=== PATIENT | female | born 1980 | race Caucasian/White ===

== ENCOUNTER 2021-07-27 09:04 | Outpatient (CLI) | payer BC, SELFPAY ==
[2021-07-27 09:51] LABS: Alanine Aminotransferase 14 U/L (4-35); Albumin Level 4.1 g/dL (3.5-5.1); Alkaline Phosphatase 75 U/L (38-126); Amylase 63 U/L (30-110); Aspartate Amino Transferase 25 U/L (14-36); Bilirubin,Total 0.4 mg/dL (0.2-1.3); Lipase 67 U/L (23-300)
== END 2021-07-27 09:05 | disposition home or self-care (01) ==
LOC: ANHSURGERY 09:09
PROVIDERS: PCP Physician Assistant; Visit Provider Surgery
DX: Z01.818 Encounter for other preprocedural examination (principal); K80.20 Calculus of gallbladder without cholecystitis without obstruction
CPT/HCPCS: 36415; 80076; 82150; 83690; 86850; 86900; 86901

== ENCOUNTER 2021-08-02 00:19 | Day surgery (SDC) | payer BC, SELFPAY ==
[2021-07-26 15:15] VITALS: BMI 40.8
--- NOTE | 2021-07-26 15:36 | PC.NURSE ---
Report to the Outpatient Waiting Room, entrance under the green pavilion located off [facility], at time 11:30 on date 08/02/21. OR Time: 1:30. - You and your visitor will be asked a series of questions to screen for COVID 19 for your protection. - A mask is required within the hospital. One visitor will be allowed to accompany the patient into the hospital. Patients visitor will be instructed to remain with patient at all times or leave the building. We will allow the visitor to come back to the postoperative area when patient is ready. Preoperative COVID Testing Requirements: No COVID Test needed if: (proof is required; if not received patient will have Rapid Test prior to entry) - Patient has received COVID Vaccine at least 14 days prior to procedure date or - Patient has positive COVID test result within last 90 days of surgery date. COVID Test needed if above criteria is not met Patients may have clear liquids (water, carbonated beverages, clear teas, apple juice) until 3 hours prior to surgery (10:30) with a maximum of 20 ounces. - No food from midnight until time of surgery Take the following medications with a SIP of water the morning of surgery: PAIN PILL (IF NEEDED) Medications to discontinue per physician: N/A Date to take last dose: N/A Please no make-up, nail maori, hairspray, perfume, deodorant, or body powder the day of surgery. No jewelry (including any body piercings) or valuables the day of surgery, leave them at home. Please take a shower or bath the night before, or the morning of, surgery with an antibacterial soap. Wear comfortable, loose fitting clothing. HIBICLENS SHOWER - Jewelry must be removed prior to entering the operating room. Rings and piercings that are not removed may be cut off. - The hospital will not accept responsibility for valuables. - Please leave all valuables, including medications, at home the day of surgery. If you are going home after surgery, a licensed driver guard must drive you home. - NO public transportation without another adult. - We recommend that an adult stay with you for 24 hours following discharge. - We also recommend that you do not drive, make important decision, drink alcoholic beverages, or take any drugs that were not prescribed by your health care provider for at least 24 hours after your discharge time. Follow any additional instructions given to you from your surgeon. Telephone instructions given to CAN GARCIA and asked if any additional questions and then verbalized understanding. Patient advised to call surgeon office or pre surgery nurse liaison [phone] if any additional questions.
[2021-08-02] VITALS (10 sets, daily range): BP systolic 101–137; BP diastolic 37–88; PULSE 47–73; RESP 12–18; TEMP 36.3–36.9; O2SAT 96–100
[2021-08-02] MEDS: ACETAMINOPHEN 500 MG TABLET 1000 MG PO (11:23)
[2021-08-02] MEDS: KETOROLAC 15 MG/ML VIAL (*BKC) IV PUSH (11:23)
[2021-08-02] MEDS: LACTATED RINGERS 1,000 ML 30 ML IV CONT (11:32)
--- NOTE | 2021-08-02 11:44 | P.PNAN_ITS ---
Anes - Initial Pre Proc Eval Procedure: Operation Date: 08/02/21 13:30 Proposed Procedures p Laparoscopic Cholecystectomy, Possible Open - Chema Abraham DO Date/Time: 08/02/21 11:44 Surgeon: Chema Abraham DO Pre Op Diagnosis: symptomatic cholelithiasis Patient Data Age: 40 Gender: F Height: 1.63 m Weight: 108 kg Allergies Allergy/AdvReac Type Severity Reaction Status Date / Time fentanyl Allergy Mild Other Verified 07/26/21 15:14 Home Medications Medication Instructions Recorded Confirmed Type hydrocodone 5 mg-acetaminophen 325 1 tablet PO Q4H PRN #15 tablet 07/23/21 07/26/21 Rx mg tablet Patient hx anesthesia problems: none Family hx anesthesia problems: none Results Review: All pre-operative results and documents have been reviewed as part of the pre-operative evaluation. 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 Informed Consent: The patient's anesthetic plan and its attendant risks and benefits were discussed with the patient/family/POA. Questions were solicited and answers provided to the satisfaction of the patient/family/POA.
--- NOTE | 2021-08-02 13:03 | WPDHPUPDATE1 ---
History and Physical Update Update Date/Time: 08/02/21 13:03 History and Physical has been reviewed, including an updated exam of the patient. There are NO changes in the patient's condition. Risks, benefits, and alternatives have been discussed and questions answered. Patient agrees to proceed with procedure.
[2021-08-02] MEDS: ceFAZolin 2 GM/D5W 50 ML 2 GM/50 ML BAG IVPB (13:25)
--- NOTE | 2021-08-02 14:10 | W.PM.PROC2 ---
Procedure Note - Detailed Date of Procedure 08/02/21 Pre-op Diagnosis symptomatic cholelithiasis Post-op Diagnosis Same Procedure Performed Laparoscopic Cholecystectomy Surgeon Chema Abraham, DO Anesthesia General and Local (0.5% bupivacaine) Indications This is a 40-year-old woman who presented with abdominal pain that started about 1 month ago. She went to [facility] for an ultrasound which showed evidence of cholelithiasis. Discussions were made with the patient about treatment options and decision was made to proceed with laparoscopic cholecystectomy, possible open. Findings Laparoscopic cholecystectomy was performed. Patient's gallbladder was slightly elongated and had some chronic gallbladder wall thickening. There were a few tiny stones within the gallbladder. The cystic duct appeared normal in size. The gallbladder was removed and sent to the lab for pathology. Description of Procedure Procedure as well as risks, benefits, and alternatives were discussed with patient. Written consent was obtained and placed in chart prior to procedure. The patient was brought back to surgical suite. Patient was placed in supine position on operating table. Time-out was done to confirm patient and procedure. Patient was then intubated by the anesthesia department. Abdomen was prepped and draped in sterile fashion using chlorhexidine prep. 0.5% bupivacaine with epinephrine was infiltrated at each site of incision. A 5 millimeter incision was made near the umbilicus, and a 5 millimeter Optiview trocar was advanced through the abdominal layers under direct visualization. Once inside the abdominal cavity, carbon dioxide was insufflated to create a pneumoperitoneum. The camera was inserted and the abdomen was inspected. No immediate abnormalities were identified. The patient was placed in reverse Trendelenburg position and rotated slightly to the left. An 11 millimeter incision was made in the subxiphoid region, and an 11 millimeter trocar was inserted under direct visualization. Two 5 millimeter incisions were made in the right upper quadrant, and two 5 millimeter trocars were inserted under direct visualization. The gallbladder was identified and grasped at the fundus and retracted superiorly. It was then grasped at the infundibulum retracted laterally. Careful dissection around the neck of the gallbladder was performed using blunt dissection with a [place] grasper and hook electrocautery. The cystic duct was identified, and a window was created behind it. The cystic artery was also identified and a window was created behind it. The critical view of safety was identified, visualizing the cystic duct running directly into the neck of the gallbladder, and the cystic artery running directly into the wall of the gallbladder. A 5 millimeter clip soft mud molder was then used to place 2 clips proximally and 1 clip distally on both the cystic duct and cystic artery. They were then both transected using endoscopic scissors. Once safely away from the edward hepatitis, the gallbladder was dissected free from the liver bed using hook electrocautery. Hemostasis was achieved along the way. The gallbladder was removed completely and then removed through the subxiphoid port. The liver bed was then inspected. Hemostasis appeared adequate, and our clips appeared secure. The area was gently irrigated with sterile saline. No other abnormalities were seen. The patient was flattened out in bed, and 1 final inspection was made around the abdominal cavity. The subxiphoid port was removed, and a Jose Gabby cone was used to approximate the fascia with an 0-Vicryl simple interrupted suture. The remaining ports were then removed under direct visualization, the camera was removed, and the pneumoperitoneum was released. The skin of the incisions was approximated using 4-0 Monocryl subcuticular sutures. Exofin glue was applied on top. The patient was then aw
== END 2021-08-02 17:00 | disposition home or self-care (01) ==
PROVIDERS: PCP Physician Assistant; Visit Provider Surgery
PROC: 0FT44ZZ Resection of Gallbladder, Percutaneous Endoscopic Approach (ICD-10-PCS; CPT 47562; principal; 2021-08-02 13:30)
DX: K80.10 Calculus of gallbladder with chronic cholecystitis without obstruction (principal); G47.33 Obstructive sleep apnea (adult) (pediatric); E66.01 Morbid (severe) obesity due to excess calories; Z68.41 Body mass index [BMI] 40.0-44.9, adult; F17.210 Nicotine dependence, cigarettes, uncomplicated
CPT/HCPCS: 47562; 88304; A9270; J0330; J0690; J1100; J1170; J1885; J2250; J2405; J2704; J2710; J7030; J7120

== ENCOUNTER 2021-09-16 10:35 | Emergency (ER) | payer BC, SELFPAY ==
[2021-09-16 10:37] VITALS: BP 131/77; PULSE 77; RESP 16; TEMP 36.7; O2SAT 99
[2021-09-16 11:13] LABS: Basophils Absolute Auto 0.1 K/mm3 (0.0-0.1); Basophils Percent Auto 0.4 % (0.2-1.2); Eosinophils Absolute Auto 0.1 K/mm3 (0-0.3); Eosinophils Percent Auto 0.4 % (0-4.4); Hematocrit 39.6 % (37.0-47.0); Hemoglobin 13.2 g/dL (12.0-15.0); Immature Granulocyte Absolute 0.05 K/mm3 (0.00-0.031); Immature Granulocyte Percent A 0.4 % (0-0.5); Lymphocytes Absolute Auto 2.38 K/mm3 (0.9-3.2); Lymphocytes Percent Auto 17.8 % (18.3-44.2); Mean Corpuscular HGB Conc 33.3 g/dl (32-36); Mean Corpuscular Hemoglobin 31.4 pg (26-34); Mean Corpuscular Volume 94.3 fl (80-100); Mean Platelet Volume 10.7 fl (7.4-10.4); Monocytes Absolute Auto 0.9 K/mm3 (0.1-0.6); Monocytes Percent Auto 6.9 % (2.6-8.5); Neutrophils Absolute Auto 9.9 K/mm3 (1.3-6.7); Neutrophils Percent Auto 74.1 % (45.5-73.1); Platelet Count Result 291 k/mm3 (150-375); Red Cell Distribution Width 12.3 % (11.5-14.5); White Blood Count 13.4 K/mm3 (4.5-10.0)
[2021-09-16 11:27] LABS: Lactic Acid Reflex 0.8 mmol/L (0.7-2.0)
[2021-09-16 11:31] LABS: Anion Gap 8 mmol/L (8-16); Blood Urea Nitrogen 12 mg/dL (7-17); Calcium 8.5 mg/dL (8.4-10.2); Carbon Dioxide 23 mmol/L (22-30); Chloride 105 mmol/L (98-107); Estimated CRCL calculation 96 ml/min; Estimated Glomerular Filt Rate > 60; Glucose 97 mg/dL (65-110); Sodium 136 mmol/L (137-145)
--- NOTE | 2021-09-16 11:44 | PC.NURSE ---
EDP at bedside to lacerate wound. Pt yelling in pain. EDP Kanumuri states to give 4mg morphine IV push. VORB.
[2021-09-16] MEDS: MORPHINE SULFATE (*CRX) 4 MG/ML INJ IV PUSH (11:45)
--- NOTE | 2021-09-16 11:52 | ED.GENADULT ---
HPI - General Adult General Chief complaint: Wound/Laceration Stated complaint: pain following spider bite Time Seen by Provider: 09/16/21 10:45 Source: patient and family Mode of arrival: ambulatory Limitations: no limitations History of Present Illness HPI narrative: 40-year-old otherwise healthy here with complaints of pain, swelling in the right for past few days., She states she went to urgent care yesterday and was given doxycycline. Since this morning she has been having more pain and redness. She denies any fever or chills. Patient thinks she may have been bit by a spider no history of nausea, vomiting. Onset (ago): day(s) (2) Location: lower extremity (right thigh) Severity: moderate Quality: aching Pain Consistency: constant Relieving factors: none Exacerbating factors: none Associated symptoms: denies other symptoms Treatments prior to arrival: other (Doxycycline) Related Data Allergies Allergy/AdvReac Type Severity Reaction Status Date / Time fentanyl Allergy Mild Other Verified 09/16/21 10:40 Review of Systems Review of Systems: All systems reviewed & are unremarkable except as noted in HPI and below Constitutional: Constitutional: Reports no additional constitutional complaints Eyes: Eyes: Reports no additional eye complaints ENT: Reports system reviewed and no additional complaints, except as documented Cardiovascular: Cardiovascular: Reports no additional cardiovascular complaints Respiratory: Respiratory: Reports no additional respiratory complaints Gastrointestinal: Gastrointestinal: Reports no additional gastrointestinal complaints Musculoskeletal: Musculoskeletal: Reports no additional musculoskeletal complaints Integumentary/Breasts: Skin/Breast: Reports as per HPI Neurologic: Reports system reviewed and no additional complaints, except as documented PMFSH Past Medical History Medical History JAIME (obstructive sleep apnea) Surgical History Surgical History H/O foot surgery Ligament repair right foot/ankle 2018 H/O gastric sleeve 2020 Hx laparoscopic cholecystectomy 08/02/21 Hx of section 2012 Family History Family History Other Adopted Social History Social History Smoking status: Never smoker Alcohol intake: current Alcohol use details: A COUPLE TIMES/YEAR Substance use: never Substance use type: does not use Additional living arrangements comments: SON 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 HEAD: Normocephalic, atraumatic. EYES: PERRLA and EOMI. NECK: Supple. CHEST: Clear to auscultation. No respiratory distress. HEART: Regular rate and rhythm. No murmur heard. Normal peripheral pulses. ABDOMEN: Soft, nontender, nondistended, normal active bowel sounds. EXTREMITIES: Normal range of motion. No edema. abscess noted on the right thigh medial aspect about 3 cms in diameter , tender to touch SKIN: Warm, dry, no rash. NEURO: No focal deficits. Alert and oriented x3. PSYCH: Normal mood and affect. Course Course Emergency Course: informed pt about her lab work , verbal consent obtained for I and D , IV morphine was given for pain control Vital Signs Vital signs: Vital Signs Temperature 36.7 C 09/16/21 10:37 Pulse Rate 77 09/16/21 10:37 Respiratory Rate 16 09/16/21 10:37 Blood Pressure 131/77 09/16/21 10:37 Pulse Oximetry 99 09/16/21 10:37 Temperature 36.7 C 09/16/21 10:37 Pulse Rate 77 09/16/21 10:37 Respiratory Rate 16 09/16/21 10:37 Blood Pressure 131/77 09/16/21 10:37 Pulse Oximetry 99 09/16/21 10:37 Procedures Abscess I/D lower extremity:
[2021-09-16 12:18] VITALS: BP 105/76; PULSE 60; RESP 16; O2SAT 98
== END 2021-09-16 12:19 | disposition home or self-care (01) ==
PROVIDERS: Emergency Provider Family Medicine; PCP Physician Assistant
DX: L02.415 Cutaneous abscess of right lower limb (principal); G47.33 Obstructive sleep apnea (adult) (pediatric); Z98.84 Bariatric surgery status
CPT/HCPCS: 10060; 10160; 36415; 80048; 83605; 85025; 96374; 99284; J2270

== ENCOUNTER 2023-03-08 09:35 | Emergency (ER) | payer BC, SELFPAY ==
[2023-03-08 09:50] VITALS: BP 154/103; PULSE 65; RESP 20; TEMP 37.1; O2SAT 99
[2023-03-08 10:17] LABS: Basophils Percent Auto 0.5 % (0.2-1.2); Eosinophils Percent Auto 0.5 % (0-4.4); Hematocrit 37.6 % (37.0-47.0); Hemoglobin 12.3 g/dL (12.0-15.0); Immature Granulocyte Absolute 0.03 K/mm3 (0.00-0.031); Immature Granulocyte Percent A 0.4 % (0-0.5); Lymphocytes Absolute Auto 2.41 K/mm3 (0.9-3.2); Lymphocytes Percent Auto 32.6 % (18.3-44.2); Mean Corpuscular HGB Conc 32.7 g/dl (32-36); Mean Corpuscular Hemoglobin 30.9 pg (26-34); Mean Corpuscular Volume 94.5 fl (80-100); Mean Platelet Volume 10.1 fl (7.4-10.4); Monocytes Absolute Auto 0.5 K/mm3 (0.1-0.6); Monocytes Percent Auto 6.6 % (2.6-8.5); Neutrophils Absolute Auto 4.4 K/mm3 (1.3-6.7); Neutrophils Percent Auto 59.4 % (45.5-73.1); Platelet Count Result 313 k/mm3 (150-375); Red Blood Count 3.98 M/mm3 (4.2-5.4); Red Cell Distribution Width 12.1 % (11.5-14.5); White Blood Count 7.4 K/mm3 (4.5-10.0)
[2023-03-08 10:28] LABS: Alanine Aminotransferase 16 U/L (6-35); Albumin Level 4.1 g/dL (3.5-5.1); Alkaline Phosphatase 81 U/L (38-126); Anion Gap 11 mmol/L (8-16); Aspartate Amino Transferase 19 U/L (14-36); Bilirubin,Total 0.7 mg/dL (0.2-1.3); Blood Urea Nitrogen 9 mg/dL (7-17); Calcium 8.7 mg/dL (8.4-10.2); Carbon Dioxide 24 mmol/L (22-30); Chloride 105 mmol/L (98-107); Estimated CRCL calculation 112 ml/min; Estimated Glomerular Filt Rate > 60; Glucose 98 mg/dL (65-110); Lipase 101 U/L (23-300); Potassium 3.9 mmol/L (3.4-5.0); Sodium 140 mmol/L (137-145)
[2023-03-08] MEDS: SODIUM CHLORIDE 0.9% IV 2,000 ML 999 ML IV CONT (11:38)
[2023-03-08] MEDS: KETOROLAC 30 MG/ML VIAL (*BKC) IV PUSH (11:39)
[2023-03-08] MEDS: ONDANSETRON INJ 4 MG/2 ML VIAL IV PUSH (11:39)
[2023-03-08] MEDS: FAMOTIDINE 20 MG/2 ML VIAL IV PUSH (11:39)
[2023-03-08 12:04] LABS: Appearance Urine Clear (Clear); Bacteria Urine None Seen /hpf; Bilirubin Urine Negative (Negative); Blood Urine Negative (Negative); Color Urine Yellow (Yellow); Glucose Urine UA Negative (Negative); Ketones Urine Negative (Negative); Leukocyte Esterase Ur 1+ LEU/UL (Negative); Need Manual Microscopic Reviewed; Nitrate Urine Negative (Negative); Non Pathogenic Casts 0-2; Protein Urine Negative (Negative); RBC Urine 0-2 /hpf (0-2); Specific Grav Ur 1.024 (1.001-1.035); Squamous Epithelial Cell Urine Occasional /hpf (Few); WBC Urine 0-5 /hpf
[2023-03-08 12:08] LABS: Add Urine Microscopic? YES
--- NOTE | 2023-03-08 13:06 | ED.GENADULT ---
HPI - General Adult General Chief complaint: Nausea/Vomiting/Diarrhea Stated complaint: diarrhea x 2 weeks Time Seen by Provider: 03/08/23 10:36 History of Present Illness HPI narrative: Kyra Iqbal is a 42 y/o female who presents with reports of having diarrhea for about 2 weeks and feels like she is dehydrated. She states that she feels like she hasn't peed as much as she usually does. Denies any abdominal pain / no fevers/ No changes with urine/ Reports feeling generally tired. Denies nausea/vomiting Related Data Allergies Allergy/AdvReac Type Severity Reaction Status Date / Time fentanyl Allergy Mild Other Verified 09/16/21 10:40 Review of Systems Review of Systems: CONSTITUTIONAL: Denies fever, chills, or sweats. EYES: Denies visual changes, redness, or discharge. ENT: Denies rhinorrhea, congestion, sore throat, or otalgia. CARDIOVASCULAR: Denies chest pain, palpitations, or edema. RESPIRATORY: Denies cough or dyspnea. GASTROINTESTINAL: Denies abdominal pain, nausea, vomiting, Reports diarrhea for about 2 weeks GENITOURINARY: Denies dysuria or hematuria. SKIN: Denies rash or itching. MUSCULOSKELETAL: Denies back pain, joint pain, or myalgia. NEUROLOGIC: Denies headache, numbness, dizziness, or weakness. PSYCHIATRIC: Denies anxiety or depression. 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 HEAD: Normocephalic, atraumatic. EYES: PERRLA and EOMI. ENT: Nares clear, no rhinorrhea or epistaxis. Mucous membranes moist. Oropharynx without tonsillar hypertrophy exudate or other lesions. NECK: Supple. No adenopathy or masses. No carotid bruits or JVD CHEST: Clear to auscultation. No respiratory distress. No wheezes rales or rhonchi HEART: Regular rate and rhythm. No murmur heard. Normal peripheral pulses. ABDOMEN: Soft, nontender, nondistended, normal active bowel sounds. EXTREMITIES: Normal range of motion. No edema. SKIN: Warm, dry, no rash. NEURO: No focal deficits. Alert and oriented x3. PSYCH: Normal mood and affect. Course Vital Signs Vital signs: Vital Signs Temperature 37.1 C 03/08/23 09:50 Pulse Rate 65 03/08/23 09:50 Respiratory Rate 20 03/08/23 09:50 Blood Pressure 154/103 H 03/08/23 09:50 Pulse Oximetry 99 03/08/23 09:50 Oxygen Delivery Room Air 03/08/23 09:50 Temperature 37.1 C 03/08/23 09:50 Pulse Rate 65 03/08/23 09:50 Respiratory Rate 20 03/08/23 09:50 Blood Pressure 154/103 H 03/08/23 09:50 Pulse Oximetry 99 03/08/23 09:50 Oxygen Delivery Room Air 03/08/23 09:[address] [facility] Narrative Medical decision making narrative: Patient presents with this vague symptoms of feeling dehydrated, states that she has had diarrhea for two weeks No nausea/vomiting tolerating PO NO abdominal pain with palpation CBC-stable CMP-stable Lipase-stable Urine - + leuks - pt would like to be treated after discussing these results Patient hydrated here with IV fluids/ pepcid /t
[2023-03-08 13:38] VITALS: BP 140/84; PULSE 63; RESP 16; O2SAT 100
--- NOTE | 2023-03-22 07:24 | PC.NURSE ---
LATE ENTRY This note is being entered to document information to the patient's record. The following information was omitted on [03/22/23], by [Kelly OSULLIVAN stopped at [phone]].
== END 2023-03-08 13:40 | disposition home or self-care (01) ==
PROVIDERS: Emergency Medicine; Emergency Provider Nurse Practitioner Family; PCP Physician Assistant
DX: K52.9 Noninfective gastroenteritis and colitis, unspecified (principal); N39.0 Urinary tract infection, site not specified; G47.33 Obstructive sleep apnea (adult) (pediatric); Z98.84 Bariatric surgery status; Z90.49 Acquired absence of other specified parts of digestive tract
CPT/HCPCS: 36415; 80053; 81001; 81025; 83690; 85025; 96361; 96374; 96375; 99284; J1885; J2405; J7030

== ENCOUNTER 2023-09-08 18:50 | Emergency (ER) | payer BC, SELFPAY ==
--- NOTE | ~2023-09-08 | XR_ITS ---
EXAMINATION: XR forearm LT 2V DATE: 09/08/2023 19:39 INDICATION: Left forearm pain. Injury. TECHNIQUE: 2 views of left forearm were obtained. COMPARISON: None. FINDINGS: Bone alignment is normal. No fracture. Joint spaces are normal. No elbow joint effusion. IMPRESSION: 1. No fracture. Reviewed, dictated and finalized at location E. IMPRESSION: 1. No fracture.
--- NOTE | ~2023-09-08 | XR_ITS ---
EXAMINATION: XR shoulder LT min 2V DATE: 09/08/2023 19:39 INDICATION: Left shoulder pain. Injury. TECHNIQUE: 4 views of left shoulder were obtained. COMPARISON: None. FINDINGS: Bone alignment is normal. No fracture. Joint spaces are normal. IMPRESSION: 1. Normal left shoulder. Reviewed, dictated and finalized at location E. IMPRESSION: 1. Normal left shoulder.
[2023-09-08 18:54] VITALS: BP 130/81; PULSE 79; RESP 20; TEMP 36.6; O2SAT 100
--- NOTE | 2023-09-08 19:10 | ED_ITS ---
HPI - Extremity Injury (Upper) General Chief Complaint: Extremity Injury, Upper Stated Complaint: left shoulder injury Time Seen by Provider: 09/08/23 19:08 Source: patient Related Data Allergies Allergy/AdvReac Type Severity Reaction Status Date / Time fentanyl Allergy Mild Other Verified 09/08/23 18:56 PMF Past Medical History Medical History JAIME (obstructive sleep apnea) Surgical History Surgical History H/O foot surgery Ligament repair right foot/ankle 2017 H/O gastric sleeve 2020 Hx laparoscopic cholecystectomy 08/02/21 Hx of section 2012 Family History Family History Other Adopted Social History Social History Smoking status: Never smoker Alcohol intake: current Alcohol use details: A COUPLE TIMES/YEAR Substance use: never Substance use type: does not use Living arrangements: with family Additional living arrangements comments: SON Occupation/Education: occupation 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 Spiritual care concerns: No Course Vital Signs Vital signs: Vital Signs Temperature 36.6 C 09/08/23 18:54 Pulse Rate 79 09/08/23 18:54 Respiratory Rate 20 09/08/23 18:54 Blood Pressure 130/81 09/08/23 18:54 Pulse Oximetry 100 09/08/23 18:54 Oxygen Delivery Room Air 09/08/23 18:54 Temperature 36.6 C 09/08/23 18:54 Pulse Rate 79 09/08/23 18:54 Respiratory Rate 20 09/08/23 18:54 Blood Pressure 130/81 09/08/23 18:54 Pulse Oximetry 100 09/08/23 18:54 Oxygen Delivery Room Air 09/08/23 18:54 MDM - Extremity Injury (Upper) Imaging Data Radiologist's impression: Impressions Forearm X-Ray 09/08/23 19:45 IMPRESSION: 1. No fracture. Shoulder X-Ray 09/08/23 19:45 IMPRESSION: 1. Normal left shoulder. Discharge Plan Discharge Clinical Impression: Contusion of left upper arm Patient Disposition: Home, Self-Care Condition: Stable Instructions: How to Use a Sling (ED), Contusion in Adults (ED), Splint Care (ED) Additional Instructions: RETURN IF SYMPTOMS ARE WORSENING , CALL YOUR FAMILY PHYSICIAN FOR APPOINTMENT, TAKE TYLENOL NEEDED FOR ACHES AND PAIN, CONTINUE HOME MEDICATIONS. IBUPROFEN 600 MG Q 6 HOURS NEEDED, ICE PACK 20 MINUTES/HOUR FOR NEXT 24 HOURS Prescriptions: No Action famotidine 20 mg tablet 20 mg PO DAILY Qty: 30 0RF cephalexin 500 mg capsule 500 mg PO Q12H Qty: 10 0RF Follow-up/Referrals: Sebastián,DIMA Marley [Primary Care Provider] - Stand Alone Forms: Work/School Release IP
[2023-09-08] MEDS: HYDROcodone/acetaminophen (*CRX) 5-325 MG TABLET 1 TAB PO (19:40)
[2023-09-08] MEDS: IBUPROFEN 400 MG TABLET 800 MG PO (19:41)
== END 2023-09-08 21:04 | disposition home or self-care (01) ==
PROVIDERS: Emergency Provider Emergency Medicine; PCP Physician Assistant
DX: S40.022A Contusion of left upper arm, initial encounter (principal); G47.33 Obstructive sleep apnea (adult) (pediatric); Z98.84 Bariatric surgery status; Z90.49 Acquired absence of other specified parts of digestive tract; W22.8XXA Striking against or struck by other objects, initial encounter
CPT/HCPCS: 73030; 73090; 99284; A9270

== ENCOUNTER 2024-12-26 18:32 | Emergency (ER) | payer BC, SELFPAY ==
[2024-12-26 18:57] VITALS: BP 143/78; PULSE 72; RESP 20; TEMP 36.8; O2SAT 99
--- NOTE | 2024-12-26 19:06 | ED_ITS ---
HPI - URI/Sore Throat General Chief Complaint: Upper Respiratory Infection Stated Complaint: Upper Respiratory Symptoms Time Seen by Provider: 12/26/24 19:06 Source: patient and RN notes reviewed Mode of arrival: ambulatory Limitations: no limitations History of Present Illness HPI Narrative: 44 y/o female presented for c/o frequent cough, chest congestion, nasal congestion and headache. Endorses cough is painful in chest and back. Onset 10+ days. Taking Zyrtec and leonila seltzer for symptoms. Denies sob, wheezing, n/v/d/f/c. Endorses home is being renovated and she admits to exposure to large amounts of dust and debris. MD elicited complaint: cough Related Data Allergies Allergy/AdvReac Type Severity Reaction Status Date / Time fentanyl Allergy Mild Other Verified 12/26/24 18:57 Review of Systems Review of Systems: CONSTITUTIONAL: denies malaise, body aches, chills, sweats, fever EYES: Denies visual changes, redness, or discharge ENT: Reports rhinorrhea, congestion, sinus pain, otalgia, sore throat CARDIOVASCULAR: Denies chest pain, palpitations, edema RESPIRATORY: Reports cough, post nasal drainage. Denies dyspnea GASTROINTESTINAL: Denies abdominal pain, nausea, vomiting, diarrhea SKIN: Denies rash or itching NEUROLOGIC: Denies headache PMFSH Past Medical History Medical History JAIME (obstructive sleep apnea) Surgical History Surgical History H/O foot surgery Ligament repair right foot/ankle 2018 H/O gastric sleeve 2020 Hx laparoscopic cholecystectomy 08/02/21 Hx of section 2013 Family History Family History Other Adopted Social History Social History Smoking status: Never smoker Alcohol intake: current Alcohol use details: A COUPLE TIMES/YEAR Substance use: never Substance use type: does not use Living arrangements: with family Additional living arrangements comments: SON 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 EYES: conjunctivae clear ENT: Mucous membranes moist. TMs pearly gill with dull light reflex bilaterally; no tragal tenderness. Oropharynx not erythematous without lesions or exudate, no drooling, no hoarseness, no trismus, uvula midline. No tripod positioning, muffled voice, soft palate or pharyngeal wall bulging NECK: Supple. No lymphadenopathy CHEST: Clear to auscultation, breath sounds equal. No wheezing, rhonchi, rales, or stridor. No respiratory distress, speaks in full sentences. HEART: Regular rate and rhythm. No murmur heard. SKIN: Warm, dry, no rash. NEURO: Alert and oriented x3. PSYCH: Normal mood and affect Course Course Emergency Course: Patient is aware of diagnosis, understands and agrees to treatment plan. Anticipatory guidance given. Patient agrees to follow-up as directed and is aware of reasons to seek care at the emergency department. Portions of this record may have been created with voice recognition software Level of Care: Express Care Visit Vital Signs Vital signs: Vital Signs Temperature 98.2 F 12/26/24 18:57 Pulse Rate 72 12/26/24 18:57 Respiratory Rate 20 12/26/24 18:57 Blood Pressure 143/78 H 12/26/24 18:57 Pulse Oximetry 99 12/26/24 18:57 Oxygen Delivery Room Air 12/26/24 18:57 Temperature 98.2 F 12/26/24 18:57 Pulse Rate 72 12/26/24 18:57 Respiratory Rate 20 12/26/24 18:57 Blood Pressure 143/78 H 12/26/24 18:57 Pulse Oximetry 99 12/26/24 18:57 Oxygen Delivery Room Air 12/26/24 18:57 reviewed MDM - URI/Sore Throat MDM Narrative Medical decision making narrative: Discussed physical exam findings and reviewed RX. Advised supportive measures and signs/symptoms to go to the ER. Pt is appropriate for outpt treatment and f/u. Differential Diagnosis Differential diagnosis: Likely upper respiratory infection, sinusitis and viral infection Discharge Plan Discharge Clinical Impression: Bronchitis Patient Disposition: Home Condition: Stable Instructions: Antibiotic Form, Acute Bronchitis (ED) Additional Instructions: Take medication as directed Recommendations: Flonase spray and Zyrtec (or Claritin/Umu) Cough syrup may cause drowsiness; avoid driving or take it at night time. Tylenol every 8 hours as needed for pain Symptomatic treatment includes: rest, fluids, and increase humidity of the air at home. Follow up with your primary care provider as needed in 1 week Go to the ER for worsening symptoms or concerns Patient Language: Citizen Of [place] Prescriptions: New codeine-guaifenesin [Guaifenesin AC] 10-100 mg/5 mL liquid 10 ml PO Q8H PRN (Reason: cough) Qty: 120 0RF methylprednisolone [Medrol (Mundo)] 4 mg tablets,dose pack See Rx Instructions .ROUTE .COMPLEX Qty: 21 0RF Rx Instructions: orally per package directions amoxicillin-pot clavulanate 875-125 mg tablet 1 tablet PO Q12H 7 Days Qty: 14 0RF No Action famotidine 20 mg tablet 20 mg PO DAILY Qty: 30 0RF Follow-up/Referrals: Sebastián,DIMA Marley [Primary Care Provider, Unknown] Stand Alone Forms: Work/School Release IP Time of Disposition: 19:15
== END 2024-12-26 19:18 | disposition home or self-care (01) ==
PROVIDERS: Emergency Provider Nurse Practitioner Family; PCP Physician Assistant
DX: J40 Bronchitis, not specified as acute or chronic (principal)
CPT/HCPCS: 99213; G0463